=== PATIENT | female | born 1995 | race Caucasian/White ===

== ENCOUNTER 2017-01-27 12:05 | Emergency (ER) | payer OTHER ==
[2017-01-27 12:16] VITALS: BP 115/80; PULSE 102; TEMP 98.5; BMI 22.1
--- NOTE | 2017-01-27 12:16 | PDOC ---
History of Present Illness - General Chief Complaint: Oral Ulcers Stated Complaint: SORE TO LOWER GUM Time Seen by Provider: 01/27/17 12:10 History Source: Patient Exam Limitations: No Limitations - History of Present Illness Initial Comments: 01/27/17 12:10 21 y/o female with long standing history of gum problems presents to ER with pain in mouth. Just recenlt seen by dentist and referred to gum specialist. No fever or chills. No N/V/d/C. Severity: mild Past History - Past Medical History Allergies/Adverse Reactions: Allergies Allergy/AdvReac Type Severity Reaction Status Date / Time No Known Allergies Allergy Unverified 01/27/17 12:07 Home Medications: Ambulatory Orders Amoxicillin - [Amoxicillin 875mg Tablet -] 875 mg PO BID #14 tab 01/27/17 Review of Systems - Review of Systems Able to Perform ROS?: Yes Is the patient limited Khmer proficient: No Constitutional: No: Chills, Fever Respiratory: No: Cough, Shortness of Breath ABD/GI: No: Nausea, Vomiting Integumentary: No: Bruising All Other Systems: Reviewed and Negative *Physical Exam - Physical Exam General Appearance: Yes: Nourished, Appropriately Dressed. No: Apparent Distress HEENT: positive: EOMI, SAMIA. negative: Normal ENT Inspection (lower gums red and swollen, no aphthous ulcers seen or swelling to gums, no bleeding) Neck: positive: Trachea midline, Normal Thyroid, Supple. negative: Tender Respiratory/Chest: positive: Lungs Clear, Normal Breath Sounds. negative: Respiratory Distress Cardiovascular: positive: Regular Rhythm, Regular Rate, S1, S2 Vascular Pulses: Femoral (R): 4+, Femoral (L): 4+, Carotid (R): 4+, Carotid (L) : 4+, Dorsalis-Pedis (R): 4+, Doralis-Pedis (L): 4+ Gastrointestinal/Abdominal: positive: Normal Bowel Sounds, Soft, Organomegaly. negative: Tender, Flat Lymphatic: negative: Adenopathy, Tenderness, Other Musculoskeletal: positive: Normal Inspection. negative: CVA Tenderness Extremity: positive: Normal Capillary Refill, Normal Inspection, Normal Range of Motion Integumentary: positive: Normal Color, Dry, Warm Neurologic: positive: lotus notes administrator II-XII NML intact, Fully Oriented, Alert, Normal Mood/ Affect, Normal Response, Motor Strength 07/20 ED Treatment Course - ADDITIONAL ORDERS Additional order review: 01/27/17 12:15 Pt appears to have gingivitis, will need to be placed on Amoxicillin Oral B care and Ambesol OTC Follow up with gum specialist If worsen return to ER *DC/Admit/Observation/Transfer Diagnosis at time of Disposition: Gingivitis - Discharge Dispostion Disposition: HOME Condition at time of disposition: Stable Admit: No - Referrals - Patient Instructions Printed Discharge Instructions: DI for Gingivitis Additional Instructions: Fluids, rest, Motrin Amoxicillin 875 mg 2x/day for 7 days Follow up with Gum specialist Use Oral B care and Ambesol as needed for pain If worsen return to ER - Post Discharge Activity
== END 2017-01-27 12:29 | disposition home or self-care (01) ==
LOC: FER 12:05
DX: K05.10 Chronic gingivitis, plaque induced (principal)
CPT/HCPCS: 99282-25